=== PATIENT | male | born 1965 | race Caucasian/White ===

== ENCOUNTER 2020-05-23 05:54 | Inpatient (IN) | payer OTHER ==
[2020-05-23] MEDS ORDERED: hydrALAZINE HCL 20 MG/ML VIAL IVPUSH ONE (06:44)
[2020-05-23] MEDS ORDERED: hydrALAZINE HCL 20 MG/ML VIAL ONE (06:47)
[2020-05-23] MEDS ORDERED: ASPIRIN 81 MG CHEWABLE TABLETS PO ONE (07:25)
[2020-05-23] MEDS ORDERED: SODIUM CHLORIDE 1,000 ML IV SCH ×2 (07:30→09:55)
[2020-05-23] MEDS ORDERED: ASPIRIN 81 MG CHEWABLE TABLETS ONE (07:47)
[2020-05-23] MEDS ORDERED: THIAMINE HCL 200 MG/2 ML VIAL IVPB ONE (07:51)
[2020-05-23 07:53] LABS: BASO % 0.5 % (0-2.0); HEMATOCRIT 46.2 % (35.4-49); HEMOGLOBIN 16.2 GM/dL (11.7-16.9); LYMPH % 15.2 % (8-40); MCH 31.6 pg (25.7-33.7); MEAN CELL VOLUME 90.4 fl (80-96); MEAN PLT VOLUME 6.7 fl (7.5-11.1); MONO % 6.2 % (3.8-10.2); NEUT % 77.1 % (42.8-82.8); PLATELET COUNT 233 K/MM3 (134-434); RBC 5.11 M/mm3 (4.00-5.60); RDW 13.9 % (11.9-15.9); WHITE BLOOD COUNT 6.7 K/mm3 (4.0-10.0)
[2020-05-23 07:54] LABS: INR 0.97 (0.83-1.09); PROTHROMBIN TIME (PATIENT) 11.8 SEC (9.7-13.0)
[2020-05-23 07:57] LABS: ACTIVATED PTT 29.8 SECONDS (25.2-36.5)
[2020-05-23 08:08] LABS: CHLORIDE 99 mmol/L (98-107); SODIUM 134 mmol/L (136-145)
[2020-05-23] MEDS ORDERED: THIAMINE HCL 200 MG/2 ML VIAL ONE (08:10)
[2020-05-23 08:12] LABS: ANION GAP 6 MMOL/L (8-16); BLOOD UREA NITROGEN 20.8 mg/dL (7-18); CALCIUM 8.9 mg/dL (8.5-10.1); CO2 30 mmol/L (21-32)
[2020-05-23 08:13] LABS: ALBUMIN 3.3 g/dl (3.4-5.0); CHOLESTEROL 192 mg/dL (50-200); GLUCOSE,RANDOM 179 mg/dL (74-106); MAGNESIUM 2.3 mg/dL (1.8-2.4)
[2020-05-23 08:15] LABS: LDL CHOLESTEROL (ONLY SJRH) 89 mg/dL (5-100); TRIGLYCERIDES 527 mg/dL (0-150)
[2020-05-23 08:16] LABS: HDL CHOLESTEROL 43 mg/dL (40-60); SGOT/AST 48 U/L (15-37); SGPT/ALT 41 U/L (13-61)
[2020-05-23 08:17] LABS: BILIRUBIN,TOTAL 0.7 mg/dL (0.2-1); TOT PROT 6.6 g/dl (6.4-8.2)
[2020-05-23 08:18] LABS: ALK PHOS 99 U/L (45-117)
[2020-05-23] MEDS: MULTIVITAMINS (DAILY MVI) TABLET (FP) PO SCH (10:46)
[2020-05-23] MEDS: FOLIC ACID 1 MG TABLET (FP) PO SCH (10:46)
[2020-05-23] MEDS: THIAMINE HCL 100 MG TABLET (FP) PO SCH (10:46)
[2020-05-23] MEDS: INSULIN SLIDING SCALE (NOVOLOG) 1 VIAL SQ SCH ×2 (17:31→23:14)
[2020-05-23 17:52] LABS: EPI CELLS 3 /uL (0-25.1); HYALINE CASTS 0 /uL (0-3.1); URINE APPEARANCE CLEAR; URINE BACTERIA 25 /uL (0-1359); URINE BILIRUBIN NEGATIVE (NEGATIVE); URINE COLOR YELLOW; URINE GLUCOSE (UA) 1+ (NEGATIVE); URINE KETONE NEGATIVE (NEGATIVE); URINE LEUK ESTERASE NEGATIVE (NEGATIVE); URINE NITRITE NEGATIVE (NEGATIVE); URINE PROTEIN 3+ (NEGATIVE); URINE RBC 6 /uL (0-23.9); URINE UROBILINOGEN 0.2 mg/dL (0.2-1.0); URINE WBC 2 /uL (0-25.8)
[2020-05-23 19:45] LABS: PHOSPHOROUS 2.7 mg/dL (2.5-4.9)
[2020-05-23] MEDS: ATORVASTATIN CA 80 MG TABLET (FP) PO SCH (22:48)
[2020-05-24 02:02] VITALS: BMI 30.4
[2020-05-24] MEDS: INSULIN SLIDING SCALE (NOVOLOG) 1 VIAL SQ SCH ×4 (06:16→21:36)
[2020-05-24 07:03] LABS: BASO % 0.3 % (0-2.0); EOS % 1.4 % (0-4.5); HEMATOCRIT 45.3 % (35.4-49); HEMOGLOBIN 15.3 GM/dL (11.7-16.9); LYMPH % 18.4 % (8-40); MCHC 33.8 g/dl (32.0-35.9); MEAN CELL VOLUME 91.8 fl (80-96); MEAN PLT VOLUME 6.7 fl (7.5-11.1); MONO % 5.5 % (3.8-10.2); NEUT % 74.4 % (42.8-82.8); PLATELET COUNT 227 K/MM3 (134-434); RBC 4.93 M/mm3 (4.00-5.60)
[2020-05-24 07:23] LABS: ALBUMIN 3.1 g/dl (3.4-5.0); BLOOD UREA NITROGEN 23.5 mg/dL (7-18); CALCIUM 8.6 mg/dL (8.5-10.1); MAGNESIUM 2.1 mg/dL (1.8-2.4)
[2020-05-24 07:26] LABS: CREATININE 1.9 mg/dL (0.55-1.3); PHOSPHOROUS 3.5 mg/dL (2.5-4.9)
[2020-05-24 07:27] LABS: BILIRUBIN,TOTAL 0.8 mg/dL (0.2-1); TOT PROT 6.2 g/dl (6.4-8.2)
[2020-05-24] MEDS: amLODIPine BESYLATE 5 MG TABLET (FP) PO SCH ×2 (08:10→11:21)
[2020-05-24] MEDS ORDERED: PT OWN MED DRAWER 7, Y5N ONE (08:53)
[2020-05-24] MEDS: MULTIVITAMINS (DAILY MVI) TABLET (FP) PO SCH (09:17)
[2020-05-24] MEDS: THIAMINE HCL 100 MG TABLET (FP) PO SCH (09:19)
[2020-05-24] MEDS: FOLIC ACID 1 MG TABLET (FP) PO SCH (09:19)
[2020-05-24] MEDS: CLOPIDOGREL BISULFATE 75 MG TABLET (FP) PO SCH (09:19)
[2020-05-24] MEDS: ASPIRIN 81 MG CHEWABLE TABLETS PO SCH (09:24)
[2020-05-24] MEDS ORDERED: metoPROLOL SUCCINATE 25 MG TAB.SR.24H (FP) PO SCH (10:00)
[2020-05-24] MEDS: amLODIPine BESYLATE 10 MG TABLET (FP) PO SCH (11:50)
[2020-05-24] MEDS: ATORVASTATIN CA 80 MG TABLET (FP) PO SCH (21:25)
[2020-05-25 00:36] LABS: EPI CELLS 3 /uL (0-25.1); HYALINE CASTS 0 /uL (0-3.1); URINE APPEARANCE CLEAR; URINE BACTERIA 52 /uL (0-1359); URINE BILIRUBIN NEGATIVE (NEGATIVE); URINE COLOR YELLOW; URINE GLUCOSE (UA) TRACE (NEGATIVE); URINE KETONE NEGATIVE (NEGATIVE); URINE LEUK ESTERASE NEGATIVE (NEGATIVE); URINE NITRITE NEGATIVE (NEGATIVE); URINE PROTEIN 2+ (NEGATIVE); URINE RBC 3 /uL (0-23.9); URINE UROBILINOGEN 0.2 mg/dL (0.2-1.0); URINE WBC 1 /uL (0-25.8)
[2020-05-25 03:06] LABS: HEP B CORE AB, TOT Negative (Negative)
[2020-05-25] MEDS: INSULIN SLIDING SCALE (NOVOLOG) 1 VIAL SQ SCH ×4 (06:43→21:34)
[2020-05-25 07:45] LABS: ALBUMIN 3.4 g/dl (3.4-5.0)
[2020-05-25 07:46] LABS: CALCIUM 8.7 mg/dL (8.5-10.1)
[2020-05-25 07:47] LABS: BLOOD UREA NITROGEN 23.5 mg/dL (7-18)
[2020-05-25 07:50] LABS: CREATININE 1.9 mg/dL (0.55-1.3)
[2020-05-25 07:51] LABS: BILIRUBIN,TOTAL 1.1 mg/dL (0.2-1); TOT PROT 6.6 g/dl (6.4-8.2)
[2020-05-25 07:55] LABS: BASO % 0.2 % (0-2.0); EOS % 1.6 % (0-4.5); HEMATOCRIT 47.2 % (35.4-49); HEMOGLOBIN 16.2 GM/dL (11.7-16.9); LYMPH % 15.3 % (8-40); MCH 31.2 pg (25.7-33.7); MCHC 34.3 g/dl (32.0-35.9); MEAN PLT VOLUME 6.4 fl (7.5-11.1); MONO % 5.9 % (3.8-10.2); PLATELET COUNT 235 K/MM3 (134-434); RBC 5.18 M/mm3 (4.00-5.60)
[2020-05-25] MEDS: amLODIPine BESYLATE 10 MG TABLET (FP) PO SCH (09:10)
[2020-05-25] MEDS: metoPROLOL SUCCINATE 25 MG TAB.SR.24H (FP) PO SCH (09:10)
[2020-05-25] MEDS: CLOPIDOGREL BISULFATE 75 MG TABLET (FP) PO SCH (09:10)
[2020-05-25] MEDS: MULTIVITAMINS (DAILY MVI) TABLET (FP) PO SCH (09:10)
[2020-05-25] MEDS: THIAMINE HCL 100 MG TABLET (FP) PO SCH (09:10)
[2020-05-25] MEDS: FOLIC ACID 1 MG TABLET (FP) PO SCH (09:10)
[2020-05-25] MEDS: ASPIRIN 81 MG CHEWABLE TABLETS PO SCH (09:10)
[2020-05-25] MEDS ORDERED: ACETAMINOPHEN 325 MG TABLET (FP) PO PRN (11:28)
[2020-05-25] MEDS ORDERED: LOSARTAN POTASSIUM 50 MG TABLET PO SCH (11:30)
[2020-05-25] MEDS ORDERED: LOSARTAN POTASSIUM 25 MG TABLET PO SCH (14:21)
[2020-05-25] MEDS: ATORVASTATIN CA 80 MG TABLET (FP) PO SCH (21:33)
[2020-05-26] MEDS: INSULIN SLIDING SCALE (NOVOLOG) 1 VIAL SQ SCH ×4 (07:08→21:54)
[2020-05-26 08:08] LABS: BLOOD UREA NITROGEN 25.4 mg/dL (7-18); CALCIUM 8.7 mg/dL (8.5-10.1)
[2020-05-26 08:13] LABS: BASO % 0.2 % (0-2.0); EOS % 1.9 % (0-4.5); HEMOGLOBIN 16.8 GM/dL (11.7-16.9); LYMPH % 15.6 % (8-40); MCHC 35.1 g/dl (32.0-35.9); MEAN CELL VOLUME 91.1 fl (80-96); MEAN PLT VOLUME 6.8 fl (7.5-11.1); MONO % 6.2 % (3.8-10.2); NEUT % 76.1 % (42.8-82.8); PLATELET COUNT 233 K/MM3 (134-434); RBC 5.26 M/mm3 (4.00-5.60); RDW 14.1 % (11.9-15.9); WHITE BLOOD COUNT 9.6 K/mm3 (4.0-10.0)
[2020-05-26] MEDS: FOLIC ACID 1 MG TABLET (FP) PO SCH (10:07)
[2020-05-26] MEDS: amLODIPine BESYLATE 10 MG TABLET (FP) PO SCH (10:07)
[2020-05-26] MEDS: ASPIRIN 81 MG CHEWABLE TABLETS PO SCH (10:07)
[2020-05-26] MEDS: metoPROLOL SUCCINATE 25 MG TAB.SR.24H (FP) PO SCH (10:08)
[2020-05-26] MEDS: CLOPIDOGREL BISULFATE 75 MG TABLET (FP) PO SCH (10:08)
[2020-05-26] MEDS: MULTIVITAMINS (DAILY MVI) TABLET (FP) PO SCH (10:08)
[2020-05-26] MEDS: THIAMINE HCL 100 MG TABLET (FP) PO SCH (10:08)
[2020-05-26] MEDS ORDERED: LOSARTAN POTASSIUM 25 MG TABLET PO ONE (14:45)
[2020-05-26] MEDS ORDERED: hydrALAZINE HCL 25 MG TABLET (FP) PO SCH (15:28)
[2020-05-26] MEDS: ATORVASTATIN CA 80 MG TABLET (FP) PO SCH (21:54)
[2020-05-26] MEDS: hydrALAZINE HCL 25 MG TABLET (FP) PO SCH (21:54)
[2020-05-27] MEDS: INSULIN SLIDING SCALE (NOVOLOG) 1 VIAL SQ SCH ×4 (06:15→21:52)
[2020-05-27 07:27] LABS: ALBUMIN 3.6 g/dl (3.4-5.0)
[2020-05-27 07:29] LABS: BLOOD UREA NITROGEN 33.4 mg/dL (7-18); CALCIUM 9.7 mg/dL (8.5-10.1); MAGNESIUM 2.2 mg/dL (1.8-2.4)
[2020-05-27 07:32] LABS: CREATININE 2.2 mg/dL (0.55-1.3)
[2020-05-27 07:33] LABS: BILIRUBIN,TOTAL 1.1 mg/dL (0.2-1); TOT PROT 7.2 g/dl (6.4-8.2)
[2020-05-27] MEDS: THIAMINE HCL 100 MG TABLET (FP) PO SCH (10:57)
[2020-05-27] MEDS: hydrALAZINE HCL 25 MG TABLET (FP) PO SCH ×2 (10:57→21:52)
[2020-05-27] MEDS: LOSARTAN POTASSIUM 50 MG TABLET PO SCH (10:57)
[2020-05-27] MEDS: CLOPIDOGREL BISULFATE 75 MG TABLET (FP) PO SCH (10:57)
[2020-05-27] MEDS: MULTIVITAMINS (DAILY MVI) TABLET (FP) PO SCH (10:57)
[2020-05-27] MEDS: amLODIPine BESYLATE 10 MG TABLET (FP) PO SCH (10:57)
[2020-05-27] MEDS: metoPROLOL SUCCINATE 25 MG TAB.SR.24H (FP) PO SCH (10:57)
[2020-05-27] MEDS: FOLIC ACID 1 MG TABLET (FP) PO SCH (10:57)
[2020-05-27] MEDS: ATORVASTATIN CA 80 MG TABLET (FP) PO SCH (21:52)
[2020-05-28] MEDS: INSULIN SLIDING SCALE (NOVOLOG) 1 VIAL SQ SCH ×2 (06:58→12:08)
[2020-05-28 07:34] LABS: HEMATOCRIT 49.6 % (35.4-49); HEMOGLOBIN 17.3 GM/dL (11.7-16.9); MCH 31.9 pg (25.7-33.7); MCHC 34.8 g/dl (32.0-35.9); MEAN CELL VOLUME 91.8 fl (80-96); MEAN PLT VOLUME 6.8 fl (7.5-11.1); PLATELET COUNT 213 K/MM3 (134-434); RBC 5.41 M/mm3 (4.00-5.60); RDW 14.4 % (11.9-15.9); WHITE BLOOD COUNT 9.8 K/mm3 (4.0-10.0)
[2020-05-28 07:46] LABS: CALCIUM 8.9 mg/dL (8.5-10.1)
[2020-05-28 07:47] LABS: BLOOD UREA NITROGEN 38.4 mg/dL (7-18); MAGNESIUM 2.1 mg/dL (1.8-2.4)
[2020-05-28 07:50] LABS: CREATININE 2.1 mg/dL (0.55-1.3); PHOSPHOROUS 3.9 mg/dL (2.5-4.9)
[2020-05-28] MEDS: LOSARTAN POTASSIUM 50 MG TABLET PO SCH (09:38)
[2020-05-28] MEDS: hydrALAZINE HCL 25 MG TABLET (FP) PO SCH (09:38)
[2020-05-28] MEDS: MULTIVITAMINS (DAILY MVI) TABLET (FP) PO SCH (09:38)
[2020-05-28] MEDS: THIAMINE HCL 100 MG TABLET (FP) PO SCH (09:38)
[2020-05-28] MEDS: metoPROLOL SUCCINATE 25 MG TAB.SR.24H (FP) PO SCH (09:38)
[2020-05-28] MEDS: FOLIC ACID 1 MG TABLET (FP) PO SCH (09:38)
[2020-05-28] MEDS: amLODIPine BESYLATE 10 MG TABLET (FP) PO SCH (09:38)
[2020-05-28] MEDS: CLOPIDOGREL BISULFATE 75 MG TABLET (FP) PO SCH (09:38)
[2020-05-28 15:50] VITALS: BP 141/89; PULSE 78; TEMP 98.6
== END 2020-05-28 18:33 | disposition home or self-care (01) | DRG 45 ==
LOC: JER 05:54 → JERBED 09:44 → J4W 22:35
PROVIDERS: ATTEND Student in an Organized Health Care Education/Training Program
DX: I63.9 Cerebral infarction, unspecified (principal); I12.9 Hypertensive chronic kidney disease with stage 1 through stage 4 chronic kidney disease, or unspecified chronic kidney disease; N18.30 Chronic kidney disease, stage 3 unspecified; Z68.30 Body mass index [BMI] 30.0-30.9, adult; F10.10 Alcohol abuse, uncomplicated; K76.0 Fatty (change of) liver, not elsewhere classified; E11.22 Type 2 diabetes mellitus with diabetic chronic kidney disease; F17.210 Nicotine dependence, cigarettes, uncomplicated; R42 Dizziness and giddiness; E66.9 Obesity, unspecified; R80.9 Proteinuria, unspecified
CPT/HCPCS: 36415; 70450-TC; 70551-TC; 71045-TC-FY; 72125-TC; 76775-TC; 80048; 80053; 80061; 80074; 81003; 82436; 82550; 82565; 82962; 83036; 83721; 83735; 84100; 84133; 84156; 84300; 84443; 84484; 85025; 85027; 85610; 85730; 86704; 86706; 86708; 86780; 86850; 86900; 86901; 87522; 87536; 93005; 93010; 93306-TC; 93880-TC; 97116-GP; 97161-GP; 99285-25; C9803; U0003

== ENCOUNTER 2020-06-05 20:01 | Emergency (ER) | payer OTHER ==
[2020-06-05 20:05] VITALS: TEMP 98.6; BMI 30.5
[2020-06-05] MEDS ORDERED: ACETAMINOPHEN 1000 MG/100 ML VIAL (NON FORMULARY) IVPB ONE (21:22)
[2020-06-05] MEDS ORDERED: LACTATED RINGERS SOLUTION 1000 ML INFUS.BAG IV ONE (21:22)
[2020-06-05] MEDS ORDERED: MAG HYDROX/AL HYDROX/SIMETH 30 ML UNIT-DOSE CUP PO ONE (21:22)
[2020-06-05] MEDS ORDERED: FAMOTIDINE 20 MG/50 ML IVPB 20 MG/50 ML MG IVPB ONE ×3 (21:22→21:57)
[2020-06-05] MEDS ORDERED: ACETAMINOPHEN INJECTION 100 ML IVPB ONE (21:50)
[2020-06-05] MEDS ORDERED: MAG HYDROX/AL HYDROX/SIMETH 30 ML UNIT-DOSE CUP ONE (21:50)
[2020-06-05 22:18] LABS: BASO % 0.3 % (0-2.0); EOS % 0.9 % (0-4.5); HEMATOCRIT 44.1 % (35.4-49); HEMOGLOBIN 15.4 GM/dL (11.7-16.9); LYMPH % 17.5 % (8-40); MCH 31.4 pg (25.7-33.7); MCHC 34.8 g/dl (32.0-35.9); MEAN CELL VOLUME 90.1 fl (80-96); MEAN PLT VOLUME 6.6 fl (7.5-11.1); MONO % 6.4 % (3.8-10.2); NEUT % 74.9 % (42.8-82.8); PLATELET COUNT 208 K/MM3 (134-434); RDW 13.7 % (11.9-15.9)
[2020-06-05 22:31] LABS: INR 1.09 (0.83-1.09); PROTHROMBIN TIME (PATIENT) 13.2 SEC (9.7-13.0)
[2020-06-05 22:34] LABS: ACTIVATED PTT 29.4 SECONDS (25.2-36.5)
[2020-06-05 22:40] LABS: CHLORIDE 98 mmol/L (98-107); POTASSIUM 4.5 mmol/L (3.5-5.1); SODIUM 136 mmol/L (136-145)
[2020-06-05 22:42] LABS: ALBUMIN 3.5 g/dl (3.4-5.0); BLOOD UREA NITROGEN 27.4 mg/dL (7-18); CALCIUM 8.9 mg/dL (8.5-10.1); GLUCOSE,RANDOM 136 mg/dL (74-106); LIPASE 424 U/L (73-393)
[2020-06-05 22:45] LABS: SGOT/AST 27 U/L (15-37); SGPT/ALT 38 U/L (13-61)
[2020-06-05 22:47] LABS: BILIRUBIN,TOTAL 0.7 mg/dL (0.2-1); TOT PROT 6.6 g/dl (6.4-8.2)
[2020-06-05 22:48] LABS: ALK PHOS 100 U/L (45-117)
[2020-06-05 22:51] LABS: ANION GAP 6 MMOL/L (8-16); CO2 31 mmol/L (21-32)
[2020-06-06 01:06] VITALS: BP 136/92; PULSE 67
[2020-06-06] MEDS ORDERED: METOCLOPRAMIDE HCL INJECTION 10 MG/2 ML VIAL IVPUSH ONE (01:09)
[2020-06-06] MEDS ORDERED: METOCLOPRAMIDE HCL INJECTION 10 MG/2 ML VIAL ONE (01:14)
== END 2020-06-06 02:13 | disposition home or self-care (01) ==
LOC: JER 20:01
PROC: 3E0333Z Introduction of Anti-inflammatory into Peripheral Vein, Percutaneous Approach (ICD-10-PCS; principal; 2020-06-05)
PROC: 3E033GC Introduction of Other Therapeutic Substance into Peripheral Vein, Percutaneous Approach (ICD-10-PCS; 2020-06-05)
PROC: 3E033GC Introduction of Other Therapeutic Substance into Peripheral Vein, Percutaneous Approach (ICD-10-PCS; 2020-06-05)
DX: R06.6 Hiccough (principal)
CPT/HCPCS: 36415; 71045-TC-FY; 74177-TC; 80053; 83690; 84484; 85025; 85610; 85730; 93005; 93010; 99285-25; J0131; Q9967

== ENCOUNTER 2020-06-11 14:37 | Inpatient (IN) | payer OTHER ==
[2020-06-11 17:19] LABS: BASO % 0.3 % (0-2.0); EOS % 2.1 % (0-4.5); HEMATOCRIT 46.1 % (35.4-49); HEMOGLOBIN 15.9 GM/dL (11.7-16.9); LYMPH % 10.7 % (8-40); MCH 31.3 pg (25.7-33.7); MCHC 34.5 g/dl (32.0-35.9); MEAN CELL VOLUME 90.7 fl (80-96); MEAN PLT VOLUME 6.6 fl (7.5-11.1); MONO % 4.6 % (3.8-10.2); NEUT % 82.3 % (42.8-82.8); PLATELET COUNT 226 K/MM3 (134-434); RBC 5.09 M/mm3 (4.00-5.60); RDW 14.1 % (11.9-15.9); WHITE BLOOD COUNT 10.1 K/mm3 (4.0-10.0)
[2020-06-11 17:31] LABS: INR 0.99 (0.83-1.09)
[2020-06-11] MEDS ORDERED: ROSUVASTATIN CA 40 MG TABLET PO ONE (17:33)
[2020-06-11] MEDS ORDERED: ASPIRIN 81 MG CHEWABLE TABLETS PO ONE (17:33)
[2020-06-11 17:34] LABS: ACTIVATED PTT 28.9 SECONDS (25.2-36.5)
[2020-06-11] MEDS ORDERED: METOCLOPRAMIDE HCL INJECTION 10 MG/2 ML VIAL IVPUSH ONE (17:34)
[2020-06-11 17:39] LABS: CHLORIDE 104 mmol/L (98-107); POTASSIUM 4.6 mmol/L (3.5-5.1); SODIUM 137 mmol/L (136-145)
[2020-06-11 17:41] LABS: CALCIUM 9.3 mg/dL (8.5-10.1); GLUCOSE,RANDOM 97 mg/dL (74-106)
[2020-06-11 17:42] LABS: ALBUMIN 3.6 g/dl (3.4-5.0); ANION GAP 6 MMOL/L (8-16); BLOOD UREA NITROGEN 25.6 mg/dL (7-18); CO2 27 mmol/L (21-32)
[2020-06-11 17:43] LABS: CHOLESTEROL 139 mg/dL (50-200)
[2020-06-11 17:44] LABS: LDL CHOLESTEROL (ONLY SJRH) 64 mg/dL (5-100); SGPT/ALT 54 U/L (13-61); TRIGLYCERIDES 359 mg/dL (0-150)
[2020-06-11 17:45] LABS: CREATININE 2.4 mg/dL (0.55-1.3); SGOT/AST 29 U/L (15-37)
[2020-06-11 17:46] LABS: BILIRUBIN,TOTAL 0.6 mg/dL (0.2-1); HDL CHOLESTEROL 34 mg/dL (40-60); TOT PROT 6.8 g/dl (6.4-8.2)
[2020-06-11 17:47] LABS: ALK PHOS 96 U/L (45-117)
[2020-06-11] MEDS ORDERED: ASPIRIN 81 MG CHEWABLE TABLETS ONE (19:05)
[2020-06-11] MEDS ORDERED: METOCLOPRAMIDE HCL INJECTION 10 MG/2 ML VIAL ONE (19:05)
[2020-06-11] MEDS: SODIUM CHLORIDE 1,000 ML IV SCH (20:33)
[2020-06-11 21:35] LABS: EPI CELLS 3 /uL (0-25.1); HYALINE CASTS 1 /uL (0-3.1); PH,URINE 5.5 (5.0-8.0); URINE APPEARANCE Error; URINE BACTERIA 37 /uL (0-1359); URINE BILIRUBIN NEGATIVE (NEGATIVE); URINE COLOR YELLOW; URINE GLUCOSE (UA) NEGATIVE (NEGATIVE); URINE KETONE NEGATIVE (NEGATIVE); URINE LEUK ESTERASE NEGATIVE (NEGATIVE); URINE NITRITE NEGATIVE (NEGATIVE); URINE PROTEIN 3+ (NEGATIVE); URINE RBC 29 /uL (0-23.9); URINE UROBILINOGEN 0.2 mg/dL (0.2-1.0); URINE WBC 5 /uL (0-25.8)
[2020-06-11] MEDS ORDERED: ATORVASTATIN CA 80 MG TABLET (FP) PO SCH (22:00)
[2020-06-12] MEDS ORDERED: HEPARIN NA (PORCINE) 5,000 UNITS/ML 1ML VIAL ONE (06:45)
[2020-06-12] MEDS: HEPARIN NA (PORCINE) 5,000 UNITS/ML 1ML VIAL SQ SCH ×3 (07:03→23:07)
[2020-06-12] MEDS: INSULIN SLIDING SCALE (NOVOLOG) 1 VIAL SQ SCH ×4 (07:03→23:09)
[2020-06-12 07:16] LABS: BASO % 0.3 % (0-2.0); EOS % 4.2 % (0-4.5); LYMPH % 15.2 % (8-40); MCH 31.6 pg (25.7-33.7); MCHC 34.9 g/dl (32.0-35.9); MEAN CELL VOLUME 90.4 fl (80-96); MEAN PLT VOLUME 6.5 fl (7.5-11.1); MONO % 7.3 % (3.8-10.2); PLATELET COUNT 193 K/MM3 (134-434); RBC 4.76 M/mm3 (4.00-5.60); RDW 13.9 % (11.9-15.9); WHITE BLOOD COUNT 8.2 K/mm3 (4.0-10.0)
[2020-06-12 07:29] LABS: POTASSIUM 4.1 mmol/L (3.5-5.1)
[2020-06-12 07:31] LABS: ALBUMIN 3.4 g/dl (3.4-5.0); CALCIUM 8.8 mg/dL (8.5-10.1)
[2020-06-12 07:32] LABS: MAGNESIUM 2.1 mg/dL (1.8-2.4)
[2020-06-12 07:35] LABS: CREATININE 2.1 mg/dL (0.55-1.3); PHOSPHOROUS 3.9 mg/dL (2.5-4.9)
[2020-06-12 07:36] LABS: BILIRUBIN,TOTAL 0.7 mg/dL (0.2-1); TOT PROT 6.2 g/dl (6.4-8.2)
[2020-06-12] MEDS ORDERED: MECLIZINE HCL 25 MG TABLET (FP) PO PRN (09:06)
[2020-06-12] MEDS ORDERED: ASPIRIN 325 MG ENTERIC COATED TABLET (FP) PO SCH (10:00)
[2020-06-12] MEDS: THIAMINE HCL 100 MG TABLET (FP) PO SCH (10:05)
[2020-06-12] MEDS: METOCLOPRAMIDE HCL 10 MG TABLET (FP) PO SCH (10:05)
[2020-06-12] MEDS: CLOPIDOGREL BISULFATE 75 MG TABLET (FP) PO SCH (10:05)
[2020-06-12] MEDS: MULTIVITAMINS (DAILY MVI) TABLET (FP) PO SCH (10:05)
[2020-06-12] MEDS: FOLIC ACID 1 MG TABLET (FP) PO SCH (10:20)
[2020-06-12] MEDS ORDERED: CLOPIDOGREL BISULFATE 75 MG TABLET (FP) ONE (13:53)
[2020-06-12] MEDS ORDERED: THIAMINE HCL 100 MG TABLET (FP) ONE (13:53)
[2020-06-12] MEDS ORDERED: MULTIVITAMINS (DAILY MVI) TABLET (FP) ONE (13:53)
[2020-06-12] MEDS ORDERED: METOCLOPRAMIDE HCL 10 MG TABLET (FP) PO ONE (13:54)
[2020-06-12] MEDS ORDERED: FOLIC ACID 1 MG TABLET (FP) ONE (13:54)
[2020-06-12] MEDS: SODIUM CHLORIDE 1,000 ML IV SCH (17:06)
[2020-06-12] MEDS: ATORVASTATIN CA 80 MG TABLET (FP) PO SCH (23:07)
[2020-06-13 04:38] VITALS: BMI 28.5
[2020-06-13] MEDS: INSULIN SLIDING SCALE (NOVOLOG) 1 VIAL SQ SCH ×4 (07:01→21:34)
[2020-06-13] MEDS: HEPARIN NA (PORCINE) 5,000 UNITS/ML 1ML VIAL SQ SCH ×3 (07:01→21:34)
[2020-06-13 08:40] LABS: POTASSIUM 3.9 mmol/L (3.5-5.1)
[2020-06-13 08:53] LABS: CALCIUM 8.5 mg/dL (8.5-10.1)
[2020-06-13 08:54] LABS: BLOOD UREA NITROGEN 23.9 mg/dL (7-18); MAGNESIUM 2.3 mg/dL (1.8-2.4)
[2020-06-13 08:57] LABS: PHOSPHOROUS 3.6 mg/dL (2.5-4.9)
[2020-06-13] MEDS ORDERED: FLU VACCINE (FLULAVAL) PF 60 MCG/0.5 ML SYRINGE 2020-2021 IM ONE (10:00)
[2020-06-13] MEDS: MULTIVITAMINS (DAILY MVI) TABLET (FP) PO SCH (10:28)
[2020-06-13] MEDS: METOCLOPRAMIDE HCL 10 MG TABLET (FP) PO SCH (10:28)
[2020-06-13] MEDS: THIAMINE HCL 100 MG TABLET (FP) PO SCH (10:28)
[2020-06-13] MEDS: FOLIC ACID 1 MG TABLET (FP) PO SCH (10:28)
[2020-06-13] MEDS: CLOPIDOGREL BISULFATE 75 MG TABLET (FP) PO SCH (10:28)
[2020-06-13] MEDS: ATORVASTATIN CA 80 MG TABLET (FP) PO SCH (21:34)
[2020-06-14] MEDS: HEPARIN NA (PORCINE) 5,000 UNITS/ML 1ML VIAL SQ SCH ×3 (06:18→22:31)
[2020-06-14] MEDS: INSULIN SLIDING SCALE (NOVOLOG) 1 VIAL SQ SCH ×4 (06:18→22:31)
[2020-06-14 07:31] LABS: BASO % 0.3 % (0-2.0); EOS % 6.1 % (0-4.5); HEMATOCRIT 41.8 % (35.4-49); HEMOGLOBIN 14.4 GM/dL (11.7-16.9); LYMPH % 15.8 % (8-40); MCH 31.3 pg (25.7-33.7); MCHC 34.6 g/dl (32.0-35.9); MEAN CELL VOLUME 90.4 fl (80-96); MEAN PLT VOLUME 6.5 fl (7.5-11.1); MONO % 6.6 % (3.8-10.2); NEUT % 71.2 % (42.8-82.8); PLATELET COUNT 179 K/MM3 (134-434); RBC 4.62 M/mm3 (4.00-5.60); RDW 13.8 % (11.9-15.9); WHITE BLOOD COUNT 6.6 K/mm3 (4.0-10.0)
[2020-06-14 07:51] LABS: POTASSIUM 3.8 mmol/L (3.5-5.1)
[2020-06-14 08:00] LABS: ALBUMIN 3.1 g/dl (3.4-5.0); BLOOD UREA NITROGEN 20.8 mg/dL (7-18); CALCIUM 8.8 mg/dL (8.5-10.1)
[2020-06-14 08:04] LABS: BILIRUBIN,TOTAL 0.9 mg/dL (0.2-1); TOT PROT 5.8 g/dl (6.4-8.2)
[2020-06-14] MEDS: MULTIVITAMINS (DAILY MVI) TABLET (FP) PO SCH (09:38)
[2020-06-14] MEDS: METOCLOPRAMIDE HCL 10 MG TABLET (FP) PO SCH (09:38)
[2020-06-14] MEDS: FOLIC ACID 1 MG TABLET (FP) PO SCH (09:38)
[2020-06-14] MEDS: CLOPIDOGREL BISULFATE 75 MG TABLET (FP) PO SCH (09:38)
[2020-06-14] MEDS: THIAMINE HCL 100 MG TABLET (FP) PO SCH (09:38)
[2020-06-14] MEDS: ATORVASTATIN CA 80 MG TABLET (FP) PO SCH (22:31)
[2020-06-15] MEDS: INSULIN SLIDING SCALE (NOVOLOG) 1 VIAL SQ SCH ×2 (06:46→14:24)
[2020-06-15] MEDS: HEPARIN NA (PORCINE) 5,000 UNITS/ML 1ML VIAL SQ SCH (06:53)
[2020-06-15 08:18] LABS: HEMATOCRIT 41.3 % (35.4-49); HEMOGLOBIN 14.4 GM/dL (11.7-16.9); MCH 31.3 pg (25.7-33.7); MCHC 34.9 g/dl (32.0-35.9); MEAN CELL VOLUME 89.5 fl (80-96); MEAN PLT VOLUME 6.7 fl (7.5-11.1); PLATELET COUNT 199 K/MM3 (134-434); RBC 4.61 M/mm3 (4.00-5.60); WHITE BLOOD COUNT 7.3 K/mm3 (4.0-10.0)
[2020-06-15 08:41] LABS: POTASSIUM 3.8 mmol/L (3.5-5.1)
[2020-06-15 08:48] LABS: CREATININE 2.1 mg/dL (0.55-1.3)
[2020-06-15 08:50] LABS: BLOOD UREA NITROGEN 25.4 mg/dL (7-18); CALCIUM 8.8 mg/dL (8.5-10.1)
[2020-06-15 08:52] LABS: PHOSPHOROUS 3.2 mg/dL (2.5-4.9)
[2020-06-15] MEDS ORDERED: LOSARTAN POTASSIUM 50 MG TABLET PO SCH (10:00)
[2020-06-15] MEDS ORDERED: amLODIPine BESYLATE 10 MG TABLET (FP) PO SCH (10:00)
[2020-06-15] MEDS: MULTIVITAMINS (DAILY MVI) TABLET (FP) PO SCH (10:59)
[2020-06-15] MEDS: CLOPIDOGREL BISULFATE 75 MG TABLET (FP) PO SCH (11:00)
[2020-06-15] MEDS: THIAMINE HCL 100 MG TABLET (FP) PO SCH (11:00)
[2020-06-15] MEDS: METOCLOPRAMIDE HCL 10 MG TABLET (FP) PO SCH (11:00)
[2020-06-15] MEDS: FOLIC ACID 1 MG TABLET (FP) PO SCH (11:00)
[2020-06-15 14:27] VITALS: BP 128/91; PULSE 70; TEMP 98.2
[2020-06-15] MEDS ORDERED: REPAGLINIDE 1 MG TABLET PO SCH (17:00)
== END 2020-06-15 16:14 | disposition home or self-care (01) | DRG 45 ==
LOC: JER 14:37 → JERBED 17:43 → J4W 06-12 20:19
PROVIDERS: ADMIT Hospitalist; ATTEND Internal Medicine
DX: I63.9 Cerebral infarction, unspecified (principal); N17.9 Acute kidney failure, unspecified; E11.22 Type 2 diabetes mellitus with diabetic chronic kidney disease; I12.9 Hypertensive chronic kidney disease with stage 1 through stage 4 chronic kidney disease, or unspecified chronic kidney disease; Z91.14 Patient's other noncompliance with medication regimen; F10.10 Alcohol abuse, uncomplicated; L40.9 Psoriasis, unspecified; R42 Dizziness and giddiness; N18.30 Chronic kidney disease, stage 3 unspecified; R06.6 Hiccough
CPT/HCPCS: 36415; 70450-TC; 70551-TC; 71045-TC-FY; 80048; 80053; 80061; 81003; 82550; 82565; 82962; 83721; 83735; 84100; 84300; 84484; 85025; 85027; 85610; 85651; 85730; 86850; 86900; 86901; 93005; 93010; 93880-TC; 97116-GP; 97161-GP; 99285-25; C9803; G0008; J1644; Q2036; U0003

== ENCOUNTER 2020-10-06 11:52 | Inpatient (IN) | payer OTHER ==
[2020-10-06 13:18] LABS: BASO % 0.3 % (0-2.0); HEMATOCRIT 40.3 % (35.4-49); HEMOGLOBIN 14.2 GM/dL (11.7-16.9); LYMPH % 8.7 % (8-40); MCH 30.2 pg (25.7-33.7); MCHC 35.3 g/dl (32.0-35.9); MEAN CELL VOLUME 85.7 fl (80-96); MEAN PLT VOLUME 6.5 fl (7.5-11.1); MONO % 7.7 % (3.8-10.2); NEUT % 82.3 % (42.8-82.8); PLATELET COUNT 183 K/MM3 (134-434); WHITE BLOOD COUNT 8.1 K/mm3 (4.0-10.0)
[2020-10-06 13:24] LABS: INR 1.05 (0.83-1.09); PROTHROMBIN TIME (PATIENT) 12.9 SEC (9.7-13.0)
[2020-10-06 13:27] LABS: ACTIVATED PTT 26.4 SECONDS (25.2-36.5)
[2020-10-06 13:47] LABS: CHLORIDE 107 mmol/L (98-107); SODIUM 139 mmol/L (136-145)
[2020-10-06 13:48] LABS: CHOLESTEROL 100 mg/dL (50-200); TRIGLYCERIDES 215 mg/dL (0-150)
[2020-10-06 13:49] LABS: CALCIUM 8.6 mg/dL (8.5-10.1); LDL CHOLESTEROL (ONLY SJRH) 46 mg/dL (5-100)
[2020-10-06 13:50] LABS: ANION GAP 5 MMOL/L (8-16); BLOOD UREA NITROGEN 26.1 mg/dL (7-18); CO2 27 mmol/L (21-32); GLUCOSE,RANDOM 94 mg/dL (74-106)
[2020-10-06 13:51] LABS: ALBUMIN 3.7 g/dl (3.4-5.0); HDL CHOLESTEROL 26 mg/dL (40-60)
[2020-10-06 13:53] LABS: CREATININE 2.2 mg/dL (0.55-1.3); SGOT/AST 30 U/L (15-37); SGPT/ALT 33 U/L (13-61)
[2020-10-06 13:55] LABS: BILIRUBIN,TOTAL 0.8 mg/dL (0.2-1); TOT PROT 6.7 g/dl (6.4-8.2)
[2020-10-06 13:56] LABS: ALK PHOS 101 U/L (45-117)
[2020-10-06 14:03] LABS: EPI CELLS 9 /uL (0-25.1); HYALINE CASTS 3 /uL (0-3.1); PH,URINE 5.5 (5.0-8.0); URINE APPEARANCE CLEAR; URINE BACTERIA 27 /uL (0-1359); URINE BILIRUBIN NEGATIVE (NEGATIVE); URINE COLOR YELLOW; URINE GLUCOSE (UA) NEGATIVE (NEGATIVE); URINE KETONE NEGATIVE (NEGATIVE); URINE LEUK ESTERASE NEGATIVE (NEGATIVE); URINE NITRITE NEGATIVE (NEGATIVE); URINE PROTEIN 3+ (NEGATIVE); URINE RBC 9 /uL (0-23.9); URINE UROBILINOGEN 0.2 mg/dL (0.2-1.0); URINE WBC 6 /uL (0-25.8)
[2020-10-06 18:32] VITALS: BMI 30.5
[2020-10-06] MEDS: SODIUM CHLORIDE 1,000 ML IV SCH (20:04)
[2020-10-06] MEDS: ACETAMINOPHEN 325 MG TABLET (FP) PO PRN (20:05)
[2020-10-06] MEDS: ATORVASTATIN CA 80 MG TABLET (FP) PO SCH (21:39)
[2020-10-06] MEDS: HEPARIN NA (PORCINE) 5,000 UNITS/ML 1ML VIAL SQ SCH (21:39)
[2020-10-06] MEDS: INSULIN SLIDING SCALE (NOVOLOG) 1 VIAL SQ SCH (21:39)
[2020-10-06] MEDS ORDERED: MELATONIN 5 MG TABLETS PO ONE (23:20)
[2020-10-07] MEDS ORDERED: ONDANSETRON 4 MG/2 ML VIAL IVPUSH PRN (04:30)
[2020-10-07] MEDS: ACETAMINOPHEN 325 MG TABLET (FP) PO PRN ×2 (06:26→15:54)
[2020-10-07] MEDS: INSULIN SLIDING SCALE (NOVOLOG) 1 VIAL SQ SCH ×4 (06:31→21:25)
[2020-10-07] MEDS: HEPARIN NA (PORCINE) 5,000 UNITS/ML 1ML VIAL SQ SCH ×3 (06:31→21:25)
[2020-10-07 08:38] LABS: BASO % 0.5 % (0-2.0); EOS % 1.1 % (0-4.5); HEMATOCRIT 38.4 % (35.4-49); HEMOGLOBIN 13.6 GM/dL (11.7-16.9); LYMPH % 15.3 % (8-40); MCH 30.3 pg (25.7-33.7); MCHC 35.4 g/dl (32.0-35.9); MEAN CELL VOLUME 85.6 fl (80-96); MEAN PLT VOLUME 6.7 fl (7.5-11.1); NEUT % 76.1 % (42.8-82.8); PLATELET COUNT 193 K/MM3 (134-434); RBC 4.48 M/mm3 (4.00-5.60); WHITE BLOOD COUNT 6.5 K/mm3 (4.0-10.0)
[2020-10-07 09:02] LABS: CHLORIDE 107 mmol/L (98-107); SODIUM 138 mmol/L (136-145)
[2020-10-07 09:03] LABS: CALCIUM 8.3 mg/dL (8.5-10.1)
[2020-10-07 09:04] LABS: ANION GAP 6 MMOL/L (8-16); CO2 26 mmol/L (21-32); GLUCOSE,RANDOM 141 mg/dL (74-106); MAGNESIUM 2.1 mg/dL (1.8-2.4)
[2020-10-07 09:07] LABS: CHOLESTEROL 95 mg/dL (50-200); PHOSPHOROUS 2.9 mg/dL (2.5-4.9)
[2020-10-07 09:08] LABS: LDL CHOLESTEROL (ONLY SJRH) 45 mg/dL (5-100); TRIGLYCERIDES 144 mg/dL (0-150)
[2020-10-07 09:10] LABS: HDL CHOLESTEROL 27 mg/dL (40-60)
[2020-10-07] MEDS: CLOPIDOGREL BISULFATE 75 MG TABLET (FP) PO SCH (09:46)
[2020-10-07] MEDS: LOSARTAN POTASSIUM 50 MG TABLET PO SCH (09:46)
[2020-10-07] MEDS: amLODIPine BESYLATE 10 MG TABLET (FP) PO SCH (09:46)
[2020-10-07] MEDS: SODIUM CHLORIDE 1,000 ML IV SCH (18:09)
[2020-10-07] MEDS: ATORVASTATIN CA 80 MG TABLET (FP) PO SCH (21:25)
[2020-10-08] MEDS: HEPARIN NA (PORCINE) 5,000 UNITS/ML 1ML VIAL SQ SCH ×3 (06:16→21:11)
[2020-10-08] MEDS: INSULIN SLIDING SCALE (NOVOLOG) 1 VIAL SQ SCH ×4 (06:16→21:16)
[2020-10-08] MEDS: CLOPIDOGREL BISULFATE 75 MG TABLET (FP) PO SCH (09:51)
[2020-10-08] MEDS: amLODIPine BESYLATE 10 MG TABLET (FP) PO SCH (09:51)
[2020-10-08] MEDS: ACETAMINOPHEN 325 MG TABLET (FP) PO PRN (09:52)
[2020-10-08] MEDS: LOSARTAN POTASSIUM 50 MG TABLET PO SCH (09:52)
[2020-10-08] MEDS: ATORVASTATIN CA 80 MG TABLET (FP) PO SCH (21:11)
[2020-10-09] MEDS: ACETAMINOPHEN 325 MG TABLET (FP) PO PRN (00:39)
[2020-10-09 02:24] VITALS: TEMP 97.9
[2020-10-09] MEDS: HEPARIN NA (PORCINE) 5,000 UNITS/ML 1ML VIAL SQ SCH ×2 (06:20→16:22)
[2020-10-09] MEDS: INSULIN SLIDING SCALE (NOVOLOG) 1 VIAL SQ SCH ×2 (06:38→11:12)
[2020-10-09] MEDS: CLOPIDOGREL BISULFATE 75 MG TABLET (FP) PO SCH (10:03)
[2020-10-09] MEDS: amLODIPine BESYLATE 10 MG TABLET (FP) PO SCH (10:03)
[2020-10-09] MEDS: LOSARTAN POTASSIUM 50 MG TABLET PO SCH (10:03)
[2020-10-09] MEDS ORDERED: MECLIZINE HCL 12.5 MG TABLET PO PRN (11:55)
[2020-10-09 14:13] VITALS: BP 138/82; PULSE 82
== END 2020-10-09 16:30 | disposition home or self-care (01) | DRG 58 ==
LOC: JER 11:52 → JERBED 13:18 → J4S 16:59
PROVIDERS: ADMIT Internal Medicine; ATTEND Student in an Organized Health Care Education/Training Program
DX: I69.90 Unspecified sequelae of unspecified cerebrovascular disease (principal); N18.9 Chronic kidney disease, unspecified; I12.9 Hypertensive chronic kidney disease with stage 1 through stage 4 chronic kidney disease, or unspecified chronic kidney disease; E78.5 Hyperlipidemia, unspecified; H81.4 Vertigo of central origin; R55 Syncope and collapse; E11.22 Type 2 diabetes mellitus with diabetic chronic kidney disease
CPT/HCPCS: 36415; 70450-TC; 70551-TC; 71046-TC-FY; 71250-TC; 73110-TC-RT-FY; 73130-TC-RT-FY; 80048; 80053; 80061; 81003; 82550; 82553; 82962; 83036; 83721; 83735; 84100; 84443; 84484; 85025; 85610; 85730; 86850; 86900; 86901; 93005; 93010; 97116-GP; 97161-GP; 99291; C9803; J1644; U0003; U0005

== ENCOUNTER 2021-01-17 14:27 | Inpatient (IN) | payer OTHER ==
[2021-01-17] MEDS ORDERED: SODIUM CHLORIDE 0.9% 500 ML INFUS.BAG IV ONE (15:41)
[2021-01-17 16:54] LABS: BASO % 0.4 % (0-2.0); EOS % 1.5 % (0-4.5); HEMATOCRIT 43.3 % (35.4-49); HEMOGLOBIN 15.2 GM/dL (11.7-16.9); LYMPH % 23.1 % (8-40); MCH 29.8 pg (25.7-33.7); MCHC 35.1 g/dl (32.0-35.9); MEAN PLT VOLUME 6.5 fl (7.5-11.1); MONO % 4.9 % (3.8-10.2); NEUT % 70.1 % (42.8-82.8); PLATELET COUNT 244 10^3/uL (134-434); RDW 14.6 % (11.9-15.9); WHITE BLOOD COUNT 7.4 K/mm3 (4.0-10.0)
[2021-01-17 17:14] LABS: CHLORIDE 96 mmol/L (98-107); SODIUM 129 mmol/L (136-145)
[2021-01-17 17:17] LABS: CALCIUM 8.9 mg/dL (8.5-10.1)
[2021-01-17 17:18] LABS: ALBUMIN 3.3 g/dl (3.4-5.0); ANION GAP 8 MMOL/L (8-16); BLOOD UREA NITROGEN 29.7 mg/dL (7-18); CO2 25 mmol/L (21-32)
[2021-01-17 17:21] LABS: CREATININE 2.2 mg/dL (0.55-1.3); SGOT/AST 21 U/L (15-37); SGPT/ALT 29 U/L (13-61)
[2021-01-17 17:23] LABS: BILIRUBIN,TOTAL 0.8 mg/dL (0.2-1); TOT PROT 6.7 g/dl (6.4-8.2)
[2021-01-17 17:24] LABS: ALK PHOS 160 U/L (45-117)
[2021-01-17 17:27] LABS: GLUCOSE,RANDOM 477 mg/dL (74-106)
[2021-01-17] MEDS ORDERED: NYSTATIN 100,000 UNIT/GM TOPICAL CREAM 15 GM TUBE TP ONE (17:50)
[2021-01-17 17:58] LABS: EPI CELLS 4 /uL (0-25.1); HYALINE CASTS 0 /uL (0-3.1); PH,URINE 5.5 (5.0-8.0); URINE APPEARANCE CLEAR; URINE BACTERIA 100 /uL (0-1359); URINE BILIRUBIN NEGATIVE (NEGATIVE); URINE COLOR YELLOW; URINE GLUCOSE (UA) 3+ (NEGATIVE); URINE KETONE NEGATIVE (NEGATIVE); URINE LEUK ESTERASE NEGATIVE (NEGATIVE); URINE NITRITE NEGATIVE (NEGATIVE); URINE PROTEIN 1+ (NEGATIVE); URINE RBC 31 /uL (0-23.9); URINE UROBILINOGEN 0.2 mg/dL (0.2-1.0); URINE WBC 13 /uL (0-25.8)
[2021-01-17] MEDS ORDERED: VANCOMYCIN 1 GM PREMIX - 1 GM/200 ML BAG IVPB ONE (19:56)
[2021-01-17] MEDS ORDERED: PIPERACILLIN/TAZOB 4.5 GM 4.5 GM in DEXTROSE 5%-WATER 100 ML IVPB ONE (19:56)
[2021-01-17] MEDS ORDERED: PIPERACILLIN/TAZOB 4.5 GM 4.5 GM/100 ML BAG IVPB ONE (20:14)
[2021-01-17] MEDS ORDERED: VANCOMYCIN 1 GRAM (PRE-DOCKED) 1,000 MG/250 ML BAG IVPB ONE (20:15)
[2021-01-17] MEDS ORDERED: Insulin (LOG) Aspart 100 UNITS/ML VIAL SQ ONE (20:52)
[2021-01-17] MEDS ORDERED: LACTATED RINGERS SOLUTION 1,000 ML/1,000 ML INFUS.BAG IV SCH (21:00)
[2021-01-17] MEDS: NYSTATIN 100,000 UNIT/GM TOPICAL CREAM 15 GM TUBE TP SCH (22:14)
[2021-01-17] MEDS ORDERED: amLODIPine BESYLATE 5 MG TABLET (FP) PO ONE (23:25)
[2021-01-18 00:12] LABS: CALCIUM 8.6 mg/dL (8.5-10.1)
[2021-01-18 00:13] LABS: BLOOD UREA NITROGEN 24.2 mg/dL (7-18); MAGNESIUM 2.4 mg/dL (1.8-2.4)
[2021-01-18] MEDS ORDERED: INSULIN (NOVOLOG) ASPART 100 UNITS/ML 10ML VIAL SQ ONE ×2 (00:14→03:53)
[2021-01-18] MEDS ORDERED: POTASSIUM CHLORIDE TABS 20 MEQ TABLET.ER (FP) PO ONE (00:15)
[2021-01-18 00:16] LABS: CREATININE 2.2 mg/dL (0.55-1.3)
[2021-01-18] MEDS: POLYETHYLENE GLYCOL (HEALTHYLAX) 3350 17 GM PACKET PO SCH ×3 (01:17→21:06)
[2021-01-18] MEDS ORDERED: PNEUMOC 13-VAL CONJ-DIP CRM/PF 0.5 ML DISP.SYRIN IM ONE (02:05)
[2021-01-18] MEDS: KCL 10 MEQ IVPB 10 MEQ/100 ML INFUS.BAG IVPB SCH ×5 (05:33→08:20)
[2021-01-18] MEDS: HEPARIN NA (PORCINE) 5,000 UNITS/ML 1ML VIAL SQ SCH ×3 (06:16→21:08)
[2021-01-18] MEDS: LOSARTAN POTASSIUM 50 MG TABLET PO SCH (06:16)
[2021-01-18] MEDS: HYDROCHLOROTHIAZIDE 12.5 MG CAPSULE (FP) PO SCH (06:16)
[2021-01-18] MEDS: INSULIN SLIDING SCALE (NOVOLOG) 1 VIAL SQ SCH ×4 (06:17→21:10)
[2021-01-18] MEDS ORDERED: INSULIN (NOVOLOG) ASPART 100 UNITS/ML 10ML VIAL ONE ×3 (06:43→20:41)
[2021-01-18 09:41] LABS: HEMATOCRIT 42.2 % (35.4-49); HEMOGLOBIN 14.8 GM/dL (11.7-16.9); MCH 29.9 pg (25.7-33.7); MCHC 35.1 g/dl (32.0-35.9); MEAN CELL VOLUME 85.4 fl (80-96); MEAN PLT VOLUME 6.3 fl (7.5-11.1); PLATELET COUNT 211 10^3/uL (134-434); RBC 4.95 M/mm3 (4.00-5.60); RDW 14.7 % (11.9-15.9); WHITE BLOOD COUNT 7.1 K/mm3 (4.0-10.0)
[2021-01-18] MEDS: NYSTATIN 100,000 UNIT/GM TOPICAL CREAM 15 GM TUBE TP SCH ×2 (09:52→21:12)
[2021-01-18] MEDS: GABAPENTIN 100 MG CAPSULE PO SCH (09:52)
[2021-01-18] MEDS ORDERED: metroNIDAZOLE 250 MG TABLET PO SCH ×2 (10:00)
[2021-01-18] MEDS ORDERED: ENOXAPARIN NA (PORCINE) 30 MG/0.3 ML DISP.SYRIN SQ SCH (10:00)
[2021-01-18] MEDS ORDERED: PNEUMOCOCCAL 23 VACCINE 0.5 ML VIAL IM ONE (10:00)
[2021-01-18 10:05] LABS: CALCIUM 8.6 mg/dL (8.5-10.1)
[2021-01-18 10:06] LABS: ALBUMIN 2.9 g/dl (3.4-5.0); BLOOD UREA NITROGEN 21.2 mg/dL (7-18); MAGNESIUM 2.4 mg/dL (1.8-2.4)
[2021-01-18 10:09] LABS: CREATININE 1.8 mg/dL (0.55-1.3); PHOSPHOROUS 2.7 mg/dL (2.5-4.9)
[2021-01-18 10:11] LABS: BILIRUBIN,TOTAL 0.8 mg/dL (0.2-1)
[2021-01-18] MEDS ORDERED: FLUCONAZOLE 150 MG TABLET PO ONE (10:33)
[2021-01-18] MEDS ORDERED: AMPICILLIN NA/SULBACTAM NA 3 GM in SODIUM CHLORIDE 100 ML IVPB SCH (11:00)
[2021-01-18] MEDS: ASPIRIN 81 MG CHEWABLE TABLETS PO SCH (15:04)
[2021-01-18 17:01] LABS: HIV INTERPRETATION NEGATIVE (NEGATIVE)
[2021-01-18] MEDS ORDERED: SODIUM CHLORIDE 100 ML IVPB ONE ×2 (17:11→23:52)
[2021-01-18] MEDS ORDERED: AMPICILLIN NA/SULBACTAM NA 3 GM VIAL ONE ×2 (17:11→23:51)
[2021-01-18] MEDS: AMPICILLIN NA/SULBACTAM NA 3 GM in SODIUM CHLORIDE 100 ML IVPB SCH (17:19)
[2021-01-18] MEDS ORDERED: Insulin (LOG) Aspart 100 UNITS/ML VIAL SQ ONE (20:52)
[2021-01-18] MEDS ORDERED: VANCOMYCIN 1 GM in D5W (PRE-DOCKED) 1,000 MG/250 ML IVPB SCH (21:00)
[2021-01-18] MEDS: amLODIPine BESYLATE 5 MG TABLET (FP) PO SCH (21:07)
[2021-01-18] MEDS: ATORVASTATIN CA 40 MG TABLET (FP) PO SCH (21:07)
[2021-01-18] MEDS: INSULIN (LEVEMIR) 100 UNITS/ML UNITS SQ SCH (21:09)
[2021-01-18] MEDS ORDERED: INSULIN (LEVEMIR) 100 UNITS/ML UNITS SQ SCH (22:00)
[2021-01-18] MEDS ORDERED: ATORVASTATIN CA 20 MG TABLET (FP) PO SCH (22:00)
[2021-01-19] MEDS: AMPICILLIN NA/SULBACTAM NA 3 GM in SODIUM CHLORIDE 100 ML IVPB SCH ×3 (01:03→17:50)
[2021-01-19] MEDS: INSULIN SLIDING SCALE (NOVOLOG) 1 VIAL SQ SCH ×4 (06:00→21:31)
[2021-01-19] MEDS: INSULIN (LEVEMIR) 100 UNITS/ML UNITS SQ SCH ×2 (06:00→21:28)
[2021-01-19] MEDS: LOSARTAN POTASSIUM 50 MG TABLET PO SCH (06:01)
[2021-01-19] MEDS: GLIMEPIRIDE 2 MG TABLET PO SCH (06:01)
[2021-01-19] MEDS: HYDROCHLOROTHIAZIDE 12.5 MG CAPSULE (FP) PO SCH (06:01)
[2021-01-19] MEDS: HEPARIN NA (PORCINE) 5,000 UNITS/ML 1ML VIAL SQ SCH ×3 (06:01→21:29)
[2021-01-19] MEDS ORDERED: INSULIN (NOVOLOG) ASPART 100 UNITS/ML 10ML VIAL ONE (06:07)
[2021-01-19 08:29] LABS: HEMATOCRIT 43.7 % (35.4-49); MCHC 34.4 g/dl (32.0-35.9); MEAN CELL VOLUME 87.2 fl (80-96); MEAN PLT VOLUME 6.7 fl (7.5-11.1); PLATELET COUNT 211 10^3/uL (134-434); RBC 5.02 M/mm3 (4.00-5.60); RDW 14.6 % (11.9-15.9); WHITE BLOOD COUNT 6.3 K/mm3 (4.0-10.0)
[2021-01-19 08:53] LABS: CALCIUM 8.8 mg/dL (8.5-10.1)
[2021-01-19 08:54] LABS: BLOOD UREA NITROGEN 27.6 mg/dL (7-18); MAGNESIUM 2.2 mg/dL (1.8-2.4)
[2021-01-19 08:56] LABS: PHOSPHOROUS 3.5 mg/dL (2.5-4.9)
[2021-01-19] MEDS ORDERED: SODIUM CHLORIDE 100 ML IVPB ONE ×2 (09:00→17:48)
[2021-01-19] MEDS ORDERED: AMPICILLIN NA/SULBACTAM NA 3 GM VIAL ONE ×2 (09:00→17:48)
[2021-01-19] MEDS: POLYETHYLENE GLYCOL (HEALTHYLAX) 3350 17 GM PACKET PO SCH ×2 (09:04→21:28)
[2021-01-19] MEDS: ASPIRIN 81 MG CHEWABLE TABLETS PO SCH (09:04)
[2021-01-19] MEDS: GABAPENTIN 100 MG CAPSULE PO SCH (09:04)
[2021-01-19] MEDS: NYSTATIN 100,000 UNIT/GM TOPICAL CREAM 15 GM TUBE TP SCH ×2 (09:13→21:27)
[2021-01-19] MEDS ORDERED: VANCOMYCIN 1 GM in D5W (PRE-DOCKED) 1,000 MG/250 ML IVPB SCH (21:00)
[2021-01-19] MEDS: amLODIPine BESYLATE 5 MG TABLET (FP) PO SCH (21:30)
[2021-01-19] MEDS: ATORVASTATIN CA 40 MG TABLET (FP) PO SCH (21:30)
[2021-01-20] MEDS ORDERED: AMPICILLIN NA/SULBACTAM NA 3 GM VIAL ONE ×3 (02:12→17:07)
[2021-01-20] MEDS ORDERED: SODIUM CHLORIDE 100 ML IVPB ONE ×3 (02:13→17:07)
[2021-01-20] MEDS: AMPICILLIN NA/SULBACTAM NA 3 GM in SODIUM CHLORIDE 100 ML IVPB SCH ×3 (02:44→18:06)
[2021-01-20] MEDS ORDERED: PT OWN MED DRAWER 7, Y5N ONE (07:08)
[2021-01-20] MEDS: LOSARTAN POTASSIUM 50 MG TABLET PO SCH (07:09)
[2021-01-20] MEDS: HYDROCHLOROTHIAZIDE 12.5 MG CAPSULE (FP) PO SCH (07:09)
[2021-01-20] MEDS: GLIMEPIRIDE 2 MG TABLET PO SCH (07:09)
[2021-01-20] MEDS: HEPARIN NA (PORCINE) 5,000 UNITS/ML 1ML VIAL SQ SCH ×3 (07:09→21:35)
[2021-01-20] MEDS: INSULIN (LEVEMIR) 100 UNITS/ML UNITS SQ SCH ×2 (07:14→21:35)
[2021-01-20] MEDS: INSULIN SLIDING SCALE (NOVOLOG) 1 VIAL SQ SCH ×3 (07:15→21:36)
[2021-01-20 08:12] LABS: BASO % 0.5 % (0-2.0); EOS % 3.1 % (0-4.5); HEMOGLOBIN 15.8 GM/dL (11.7-16.9); LYMPH % 26.8 % (8-40); MCHC 34.2 g/dl (32.0-35.9); MEAN CELL VOLUME 87.5 fl (80-96); MEAN PLT VOLUME 6.6 fl (7.5-11.1); MONO % 6.8 % (3.8-10.2); NEUT % 62.8 % (42.8-82.8); PLATELET COUNT 204 10^3/uL (134-434); RBC 5.26 M/mm3 (4.00-5.60); RDW 14.5 % (11.9-15.9); WHITE BLOOD COUNT 7.1 K/mm3 (4.0-10.0)
[2021-01-20 08:33] LABS: CALCIUM 9.1 mg/dL (8.5-10.1)
[2021-01-20 08:34] LABS: BLOOD UREA NITROGEN 29.4 mg/dL (7-18); MAGNESIUM 2.3 mg/dL (1.8-2.4)
[2021-01-20 08:37] LABS: CREATININE 2.1 mg/dL (0.55-1.3); PHOSPHOROUS 4.3 mg/dL (2.5-4.9)
[2021-01-20] MEDS: NYSTATIN 100,000 UNIT/GM TOPICAL CREAM 15 GM TUBE TP SCH ×2 (09:27→21:36)
[2021-01-20] MEDS: POLYETHYLENE GLYCOL (HEALTHYLAX) 3350 17 GM PACKET PO SCH ×2 (09:27→21:39)
[2021-01-20] MEDS: ASPIRIN 81 MG CHEWABLE TABLETS PO SCH (09:27)
[2021-01-20] MEDS: GABAPENTIN 100 MG CAPSULE PO SCH (09:27)
[2021-01-20] MEDS ORDERED: INSULIN SLIDING SCALE (NOVOLOG) 1 VIAL SQ SCH (14:29)
[2021-01-20] MEDS: Insulin (LOG) Aspart 100 UNITS/ML VIAL SQ SCH (16:59)
[2021-01-20 21:29] VITALS: BMI 27.5
[2021-01-20] MEDS: ATORVASTATIN CA 40 MG TABLET (FP) PO SCH (21:35)
[2021-01-21] MEDS ORDERED: AMPICILLIN NA/SULBACTAM NA 3 GM VIAL ONE ×2 (00:35→09:27)
[2021-01-21] MEDS ORDERED: SODIUM CHLORIDE 100 ML IVPB ONE ×2 (00:36→09:28)
[2021-01-21] MEDS: AMPICILLIN NA/SULBACTAM NA 3 GM in SODIUM CHLORIDE 100 ML IVPB SCH ×2 (01:43→09:33)
[2021-01-21] MEDS ORDERED: PT OWN MED DRAWER 7, Y5N ONE (05:54)
[2021-01-21] MEDS: HEPARIN NA (PORCINE) 5,000 UNITS/ML 1ML VIAL SQ SCH ×2 (06:09→15:38)
[2021-01-21] MEDS: LOSARTAN POTASSIUM 50 MG TABLET PO SCH (06:10)
[2021-01-21] MEDS: HYDROCHLOROTHIAZIDE 12.5 MG CAPSULE (FP) PO SCH (06:10)
[2021-01-21] MEDS: Insulin (LOG) Aspart 100 UNITS/ML VIAL SQ SCH ×3 (06:10→17:59)
[2021-01-21] MEDS: INSULIN SLIDING SCALE (NOVOLOG) 1 VIAL SQ SCH ×3 (06:10→17:59)
[2021-01-21] MEDS: INSULIN (LEVEMIR) 100 UNITS/ML UNITS SQ SCH (06:10)
[2021-01-21] MEDS ORDERED: INSULIN (NOVOLOG) ASPART 100 UNITS/ML 10ML VIAL ONE (06:42)
[2021-01-21] MEDS ORDERED: GLIMEPIRIDE 4 MG TABLET PO SCH (07:00)
[2021-01-21 08:32] LABS: BASO % 0.7 % (0-2.0); HEMATOCRIT 47.2 % (35.4-49); HEMOGLOBIN 16.2 GM/dL (11.7-16.9); LYMPH % 30.3 % (8-40); MCH 29.9 pg (25.7-33.7); MCHC 34.5 g/dl (32.0-35.9); MEAN CELL VOLUME 86.8 fl (80-96); MEAN PLT VOLUME 6.3 fl (7.5-11.1); MONO % 6.3 % (3.8-10.2); NEUT % 59.7 % (42.8-82.8); PLATELET COUNT 194 10^3/uL (134-434); RBC 5.43 M/mm3 (4.00-5.60); RDW 14.3 % (11.9-15.9); WHITE BLOOD COUNT 6.4 K/mm3 (4.0-10.0)
[2021-01-21 08:54] LABS: CALCIUM 9.3 mg/dL (8.5-10.1)
[2021-01-21 08:55] LABS: ALBUMIN 3.1 g/dl (3.4-5.0); MAGNESIUM 2.4 mg/dL (1.8-2.4)
[2021-01-21 08:58] LABS: CREATININE 2.2 mg/dL (0.55-1.3)
[2021-01-21 08:59] LABS: BILIRUBIN,TOTAL 0.7 mg/dL (0.2-1); TOT PROT 6.3 g/dl (6.4-8.2)
[2021-01-21] MEDS: GABAPENTIN 100 MG CAPSULE PO SCH (09:34)
[2021-01-21] MEDS: ASPIRIN 81 MG CHEWABLE TABLETS PO SCH (09:35)
[2021-01-21] MEDS: POLYETHYLENE GLYCOL (HEALTHYLAX) 3350 17 GM PACKET PO SCH (09:35)
[2021-01-21] MEDS ORDERED: VITAMIN B COMP W-C 1 EA TABLET (NEPHRO-VITE) PO SCH (10:00)
[2021-01-21 13:07] VITALS: BP 112/72; PULSE 69; TEMP 97.7
[2021-01-21] MEDS: NYSTATIN 100,000 UNIT/GM TOPICAL CREAM 15 GM TUBE TP SCH (17:34)
[2021-01-22] MEDS ORDERED: amLODIPine BESYLATE 5 MG TABLET (FP) PO SCH (10:00)
[2021-01-23 12:07] LABS: ANTIGLOMERULAR BASEMENT MEN.AB 2 units (0-20)
[2021-01-23 16:08] LABS: ATYPICAL pANCA <1:20 titer (Neg:<1:20); C-ANCA <1:20 titer (Neg:<1:20)
== END 2021-01-21 19:12 | disposition home or self-care (01) | DRG 501 ==
LOC: JER 14:27 → JERBED 19:39 → J7W 01-18 00:14
PROVIDERS: ADMIT Internal Medicine; ATTEND Internal Medicine
DX: N49.2 Inflammatory disorders of scrotum (principal); E11.65 Type 2 diabetes mellitus with hyperglycemia; E78.5 Hyperlipidemia, unspecified; F10.10 Alcohol abuse, uncomplicated; I12.9 Hypertensive chronic kidney disease with stage 1 through stage 4 chronic kidney disease, or unspecified chronic kidney disease; E11.22 Type 2 diabetes mellitus with diabetic chronic kidney disease; N18.30 Chronic kidney disease, stage 3 unspecified; E87.1 Hypo-osmolality and hyponatremia; Q55.69 Other congenital malformation of penis; N50.89 Other specified disorders of the male genital organs; N47.1 Phimosis; I25.10 Atherosclerotic heart disease of native coronary artery without angina pectoris; E11.40 Type 2 diabetes mellitus with diabetic neuropathy, unspecified; Z86.73 Personal history of transient ischemic attack (TIA), and cerebral infarction without residual deficits
CPT/HCPCS: 36415; 71045-TC-FY; 76775-TC; 80048; 80053; 80061; 81003; 82570; 82962; 83036; 83516; 83520; 83735; 84100; 84155; 84156; 84165; 84484; 85025; 85027; 86038; 86225; 86256; 87077; 87086; 87102; 87210; 87389; 87491; 87591; 90732; 93005; 93010; 97116-GP; 97161-GP; 99285-25; C9803; G0009; J1644; U0003; U0005

== ENCOUNTER 2024-05-04 10:12 | Observation (INO) | payer OTHER ==
[2024-05-04 11:19] VITALS: BMI 29.8
[2024-05-04] MEDS: SODIUM CHLORIDE 1,000 ML IV SCH (11:31)
[2024-05-04 11:32] LABS: BASO % 0.2 % (0-2.0); EOS % 1.4 % (0-4.5); HEMATOCRIT 45.2 % (35.4-49); HEMOGLOBIN 15.4 GM/dL (11.7-16.9); LYMPH % 11.7 % (8-40); MCH 30.1 pg (25.7-33.7); MCHC 34.1 g/dl (32.0-35.9); MEAN CELL VOLUME 88.1 fl (80-96); MEAN PLT VOLUME 6.3 fl (7.5-11.1); MONO % 5.8 % (3.8-10.2); NEUT % 80.9 % (42.8-82.8); PLATELET COUNT 177 10^3/uL (134-434); RBC 5.13 M/mm3 (4.00-5.60); WHITE BLOOD COUNT 7.8 K/mm3 (4.0-10.0)
[2024-05-04 11:39] LABS: INR 1.04 (0.83-1.09); PROTHROMBIN TIME (PATIENT) 11.9 SEC (9.7-13.0)
[2024-05-04 11:42] LABS: ACTIVATED PTT 33.3 SECONDS (25.2-36.5)
[2024-05-04 11:56] LABS: POTASSIUM 4.4 mmol/L (3.5-5.1)
[2024-05-04 11:59] LABS: ALBUMIN 3.9 g/dl (3.4-5.0); CALCIUM 9.6 mg/dL (8.5-10.1)
[2024-05-04 12:00] LABS: BLOOD UREA NITROGEN 37.6 mg/dL (7-18)
[2024-05-04 12:06] LABS: BILIRUBIN,TOTAL 0.6 mg/dL (0.2-1)
[2024-05-04 13:29] LABS: EPI CELLS 1 /uL (0-25.1); HYALINE CASTS 0 /uL (0-3.1); PH,URINE 5.5 (5.0-8.0); URINE APPEARANCE CLEAR; URINE BACTERIA 5 /uL (0-1359); URINE BILIRUBIN NEGATIVE (NEGATIVE); URINE COLOR YELLOW; URINE GLUCOSE (UA) NEGATIVE (NEGATIVE); URINE KETONE NEGATIVE (NEGATIVE); URINE LEUK ESTERASE NEGATIVE (NEGATIVE); URINE NITRITE NEGATIVE (NEGATIVE); URINE PROTEIN 3+ (NEGATIVE); URINE RBC 3 /uL (0-23.9); URINE UROBILINOGEN 0.2 mg/dL (0.2-1.0); URINE WBC 3 /uL (0-25.8)
[2024-05-04] MEDS: ATORVASTATIN CA 80 MG TABLET (FP) PO SCH (21:42)
[2024-05-05 01:21] LABS: HIV INTERPRETATION NEGATIVE (NEGATIVE)
[2024-05-05 07:47] LABS: HEMOGLOBIN 14.8 GM/dL (11.7-16.9); MCHC 33.7 g/dl (32.0-35.9); MEAN PLT VOLUME 6.8 fl (7.5-11.1); PLATELET COUNT 181 10^3/uL (134-434); RBC 4.95 M/mm3 (4.00-5.60); RDW 14.2 % (11.9-15.9); WHITE BLOOD COUNT 7.3 K/mm3 (4.0-10.0)
[2024-05-05] MEDS ORDERED: MECLIZINE HCL 25 MG TABLET (FP) PO SCH (08:00)
[2024-05-05 08:24] LABS: CALCIUM 9.2 mg/dL (8.5-10.1)
[2024-05-05 08:25] LABS: MAGNESIUM 2.4 mg/dL (1.8-2.4)
[2024-05-05 08:26] LABS: BLOOD UREA NITROGEN 34.1 mg/dL (7-18)
[2024-05-05 08:28] LABS: PHOSPHOROUS 3.5 mg/dL (2.5-4.9)
[2024-05-05 08:29] LABS: CREATININE 1.7 mg/dL (0.55-1.3)
[2024-05-05] MEDS: ASPIRIN COATED 81 MG TABLET.EC PO SCH (09:25)
[2024-05-05] MEDS: MECLIZINE HCL 25 MG TABLET (FP) PO SCH (09:26)
[2024-05-05 18:27] VITALS: BP 121/89; PULSE 79; RESP 18; TEMP 97.7
== END 2024-05-05 11:39 | disposition home or self-care (01) ==
LOC: JER 10:12 → JERBED 12:37 → J4W 14:47
PROVIDERS: ADMIT Internal Medicine; ATTEND Internal Medicine
PROC: 3E0337Z Introduction of Electrolytic and Water Balance Substance into Peripheral Vein, Percutaneous Approach (ICD-10-PCS; principal; 2024-05-04)
DX: G45.9 Transient cerebral ischemic attack, unspecified (principal); R42 Dizziness and giddiness; N18.9 Chronic kidney disease, unspecified; E11.22 Type 2 diabetes mellitus with diabetic chronic kidney disease; I12.9 Hypertensive chronic kidney disease with stage 1 through stage 4 chronic kidney disease, or unspecified chronic kidney disease; F10.10 Alcohol abuse, uncomplicated; Z86.73 Personal history of transient ischemic attack (TIA), and cerebral infarction without residual deficits; Z87.891 Personal history of nicotine dependence
CPT/HCPCS: 36415; 70450-TC; 70496-TC; 70498-TC; 70551-TC; 80048; 80053; 80061; 81003; 82550; 82553; 82962; 83036; 83735; 84100; 84484; 85025; 85027; 85610; 85730; 86803; 86850; 86900; 86901; 87086; 87389; 93005; 93010; 93306-TC; 93880-TC; 96372; 99291; G0378